=== PATIENT | female | born 1955 | race Caucasian/White ===

== ENCOUNTER 2017-12-28 06:24 | Inpatient (IN) ==
[~2017-12-28 06:24] MED LIST: MORPHINE SULFATE 15 MG TABLET.SA PO PRN; ROPIVACAINE HCL/PF 100 MG, EPINEPHrine 0.2 MG, KETOROLAC TROMETHAMINE 30 MG in NORMAL S... IJ PRN; TRANEXAMIC ACID 1,000 MG in NORMAL SALINE 100 ML IV PRN; ceFAZolin SODIUM 1 GM VIAL IV PRN
[2017-12-28] MEDS: RINGER'S SOLUTION,LACTATED 1,000 ML IV PRN ×2 (07:10→09:55)
--- NOTE | 2017-12-28 07:26 | ANES ---
Anesthesia Pre Procedure Eval Vitals/Labs: Last Vital Signs Temp 36.6 C 12/28/17 06:32 Pulse 85 12/28/17 06:32 Resp 20 12/28/17 06:32 BP 142/77 12/28/17 06:32 Pulse Ox 95 12/28/17 06:32 HOME MEDICATIONS ibuprofen 200 mg tablet 400 mg PO TID tab 09/24/17 [Last Taken Unknown] lisinopril 10 mg tablet 10 mg PO DAILY #30 tab 12/15/17 [Last Taken Unknown] Allergies/Adverse Reactions: Allergies Allergy/AdvReac Type Severity Reaction Status Date / Time No Known Allergies Allergy Verified 12/28/17 06:33 - Planned Procedure Planned Procedure: Right Total Knee Arthroplasty Medication List Reviewed:: Yes Allergies Verified: Yes Medical History (Last Reviewed 12/28/17 @ 07:04 by Jadon Stiles CRNA) Heart murmur (Chronic) Knee pain, chronic (Chronic) Hypertension (Chronic) H/O tooth extraction Osteoarthritis, knee Onset Date: 2011 left Surgical History (Last Reviewed 12/28/17 @ 07:05 by Jadon Stiles CRNA) History of section Onset Date: Unknown Hx of total knee arthroplasty Onset Date: 2011 left Family History (Last Reviewed 12/28/17 @ 07:05 by Jadon Stiles CRNA) Mother Cancer liver cancer Father Cancer liver - Family Anesthesia History Family History:: no untoward family reactions to anesthesia, no familial bleeding tendencies, no family history of clotting disorders, no family history of premature - Airway/Neck/Teeth Teeth Condition: None Mallampatti Score: 2 Thyromental (T-M) distance: > 6 cm Mandibulo Hyoid distance: > 3 cm - Respiratory Respiratory: chest non-tender, decreased breath sounds Smoking Status: Current every day smoker Discussed smoking cessation including day of surgery: Yes - smoked this am Sleep Apnea currently treated: No Sleep Apnea by current assessment: No - been told she snores loudly Discussed Risks/Treatment of RENE: Yes - Cardiovascular Patient History - Cardiac/Respiratory: Hypertension, Myocardial Infarction - Not by history but possible septal on EKG Tolerates Activity: Fair Heart Sounds: S1 & S2, Regular - Anesthesia Assessment and Plan ASA Class: PS, III Anesthesia Type Plan: Block - Adductor canal for post op pain relief, Spinal
[2017-12-28] MEDS ORDERED: ACETAMINOPHEN 500 MG TABLET PO PRN (09:47)
[2017-12-28] MEDS ORDERED: MAG HYDROX/ALUMINUM HYD/SIMETH 30 ML UDC PO PRN (09:47)
[2017-12-28] MEDS ORDERED: MORPHINE SULFATE 2 MG/ML DISP.SYRIN IV PRN (09:47)
[2017-12-28] MEDS ORDERED: DEXTROSE 5%-LACTATED RINGERS 1,000 ML IV PRN (09:47)
[2017-12-28] MEDS ORDERED: ZOLPIDEM TARTRATE 5 MG TABLET PO PRN (09:47)
[2017-12-28] MEDS ORDERED: MAGNESIUM HYDROXIDE 30 ML UDC PO PRN (09:47)
[2017-12-28] MEDS ORDERED: diphenhydrAMINE HCL 50 MG/ML VIAL IV PRN (09:47)
--- NOTE | 2017-12-28 09:47 | OR ---
Operative Report - Dictated Report Narrative: Date: 12/28/2017 Preoperative diagnosis: Right Knee degenerative joint disease. Postoperative diagnosis: Right Knee degenerative joint disease. Procedure: Right Total knee arthroplasty. Surgeon: Saurabh Davis M.D. Assembly Riveter: Porfirio Francisco PA-C Anesthesia: Spinal with regional block and local periarticular joint injection. Complications: None Specimens: Bone for disposal. Estimated blood loss: Minimal. Tourniquet time: 85 Minutes at 350 millimeters of mercury. Retained implants: Depuy Attune size 5 right lugged cemented posterior stabilized femoral component. Size 5 fixed-bearing cemented tibial platform. 5 by 7 millimeter posterior stabilized cross-linked tibial insert. 35 millimeter medialized patella button. Indications: Mrs. Alston is a 62-year-old female who has had long-standing right knee pain and arthrosis. This patient was followed in my clinic for period of time with significant complaints of right knee pain consistent with arthritic changes. She had failed conservative measures including, but not limited to, activity modification, passage of time, medications, and other conservative measures. Patient wished to proceed with surgical treatment. The risks, benefits, and alternatives were discussed in clinic. The risks of , blood clots, bleeding, infection, nerve/tendon blood vessel/ injury, malposition of components, intraoperative fracture, postoperative limited range of motion, persistent pain, failure of components, and need for additional procedures. Patient wished to proceed consent was obtained after answering all questions. Procedure: After marking the correct extremity on the floor, the patient was taken to the operating room. A timeout was performed. IV antibiotics consisting of Ancef were administered prior to the procedure. A regional followed by spinal anesthetic was induced by anesthesia, per my request, on the operative table with all bony prominences well-padded. Slater catheter was placed, and a bump was placed under the operative side buttock. SCDs and NAOMY hose were utilized on the nonoperative leg. A well-padded tourniquet was applied to the operative thigh. The operative leg was then pre-scrubbed with alcohol prepped, and draped in a standard sterile fashion. After exsanguinating the extremity with an Esmarch bandage, the tourniquet was inflated. After marking out the anterior knee for standard incision centered over the patella, the skin was incised and dissected down to the joint retinaculum. The joint retinaculum was marked out as well as the horizontal axis of the patella, and a standard medial parapatellar arthrotomy was then made. The most proximal aspect of the quadriceps tendon and the patella tendon insertion were protected from release. A partial synovectomy was performed as well as a resection of the infrapatellar fat pad. The distal femoral fat pad proximal to the trochlea was also resected using cautery. The soft tissues were elevated off the medial aspect of the proximal tibia using a Tian elevator ensuring that we did not transect the medial collateral ligament. Upon initial evaluation range of motion was approximately 10 degrees to 130 degrees of flexion. There were signs of advanced arthrosis in the medial and patellofemoral greater than lateral joint spaces. There were large marginal osteophytes which were removed with a rongeur. The knee was hyperflexed and the patella was tucked laterally. Protecting the surrounding soft tissues with Homans, an entry drill was placed down the femoral canal using Whitesides line for guidance into the entry point. The intramedullary femoral alignment bc was utilized in order to cut the distal femur in 5 degrees of valgus resecting 11 millimeters of bone. Next the distal femur was sized to a size 5. A posterior referencing guide was utilized to place the distal femoral cutting block in 3 degrees of external rotation. This was pinned into place. The rotation was confirmed both visually and based on anatomic landmarks. The 4 in 1 cutting jig of the appropriate size was utilized in order to make all bony cuts. The angle wing was used to ensure no notching. Retractors were utilized in order to protect surrounding soft tissues. This cut did not result in any excessive notching. We then cut the box centered over the distal femur. This allowed for resection of the anterior and posterior cruciate ligaments. I then turned my attention to the preparation of the tibia. Using an extra medullary tibial alignment bc, 2 millimeters of bone was resected off the medial articular surface. This was made perpendicular to the mechanical axis of the joint with the alignment bc centered over the ankle mortise. The alignment bc was checked and was noted to be parallel to the mechanical axis, centered over the medial one third of the tibial tubercle, paralleling the anterior surface of the tibia. We then turned our attention to the remaining meniscus and soft tissues. These were removed while protecting the surrounding ligaments and soft tissues. The marginal osteophytes off the anterior, posterior, medial, lateral aspects of the femur and tibia were removed. The tibia was sized out to a size 5. Next the tibia was drilled and punched in an externally rotated position. Next the trial femur and a series of tibial inserts were utilized in order to allow for full extension and maximal flexion. It was found that a 7 millimeter insert gave the best range of motion and stability at multiple flexion points as well as at full extension there was less than 2 mm of gapping both medially and laterally. There is minimal anterior translation with the knee at 90 degrees of flexion and no signs of being able to dislocate the knee. The patella was then prepared. The initial thickness was 21 millimeters. This was reamed down to 12 millimeters parallel to the anterior surface of the patella. It was sized out to a size 35 medialized patella button. This was then drilled and trialed. Without any medial restraint the patella tracked appropriately and did not sublux or dislocate. At this point, it was felt these were the appropriate sized implants, and all trials were removed. The standard periarticular joint injection consisting of ropivacaine, Toradol, and epinephrine were injected into the periarticular joint tissues. The bony surfaces were thoroughly irrigated with a pulsatile-suction saline irrigation device. A bone plug from the prior resected anterior chamfer cut was placed into the drill hole at the distal femur. The bony surfaces were then dried in preparation for placement of the implants. The cement was vacuum mixed per the furniture repairer's instructions. The cement was placed on the dry bony surfaces and posterior aspect of the implants. The implants were impacted into place, removing all extruded cement. At this point anesthesia administered tranexamic acid per protocol intravenously. The knee was placed in extension with axial loading with the trial insert while the cement cured. Once the cement cured, all remaining extruded cement was removed. The knee was placed through a range of motion with the trial insert to ensure appropriate range of motion and stability. Final range of motion was approximately 0 to 130 degrees. The knee was again thoroughly irrigated with pulsatile saline lavage. The final polyethylene insert was then impacted into place ensuring no retained soft tissues. The remaining periarticular joint injection was injected. A medium Hemovac drain was placed exiting superior laterally. The knee was then placed over a triangle and the arthrotomy was closed with interrupted #1 Vicryl after thoroughly irrigating the joint. The deep and subcutaneous tissues were closed with interrupted 0 and 3-0 Vicryl respectively. Skin was closed with a running subcutaneous 3-0 Monocryl and Prineo Dermabond dressing. 4 x 4's, Sof-Rol, and a full leg Guru wrap were applied. All sponge, needle, blade, and instrument counts were correct prior to closing the wounds. Postoperative condition: The patient was awoken and transferred to the postanesthesia care unit in stable condition. Plan is to be admitted to the inpatient medical/surgical floor postoperatively for 24 hours of IV antibiotics, physical therapy, occupational therapy, and medical comanagement. Patient will be weightbearing as tolerated with range of motion as tolerated. DVT prophylaxis will be with SCDs, NAOMY hose, and pharmacological anticoagulation. Anticipated hospital stay is approximately 1-3 days.
--- NOTE | 2017-12-28 10:10 | ANES ---
Anesthesia Procedure Note Procedure Note: ANESTHESIA PROCEDURE NOTE Date of Procedure: 12/28/2017 Time of procedure: 7:50 AM. Performed by: LEYLA Brewster CRNA, MSN Refrigerator Assembler: Sherry Cole RN. Preprocedure diagnosis: Post right knee arthroplasty. Post procedure diagnosis: Same. Procedure: Right Adductor Canal Block. Indications: Post great toe arthroplasty pain relief. Findings: See below. Details of the procedure: The patient was brought to OR #4 and placed in supine position. The patient's right femoral area to the knee was prepped with chlorhexidine and using ultrasound guidance the great femoral artery and nerve was identified and then followed to the level of the adductor canal. Lidocaine 1% was infiltrated to the skin of the intended injection site. Under ultrasound guidance the saphenous nerve was approached with visualization of a 4 inch shielded block needle. Once saphenous nerve was identified with proximity to the needle tip, the saphenous nerve was surrounded with 20 mL bupivacaine 0.25% with 1-200,000 epinephrine. Please see radiology/ultrasound report for details and retained images of the procedure. EBL: 0 Fluids: N/A. Specimen: N/A. Post procedure condition: The patient tolerated the procedure well. No complications were noted. Thank you for this consultation. Jadon Stiles CRNA, MSN
--- NOTE | 2017-12-28 10:10 | ANES ---
Post Anesthesia Discharge - Transfer of Care Transfer of Care handoff given to nurse: Yes - Discharge from PACU Discharge from PACU when meets criteria: Yes - Alert in PACU.
--- NOTE | 2017-12-28 10:44 | ANES ---
Post Anesthesia Assessment - Vital Signs Vitals: Last Vital Signs Temp 36.5 C 12/28/17 10:20 Pulse 79 12/28/17 10:20 Resp 26 H 12/28/17 10:20 BP 102/48 12/28/17 10:20 Pulse Ox 95 12/28/17 10:20 Airway Patency: Normal - Mental Status Level Of Consciousness: Awake, Alert, Appropriate - Pain Level Pain Score: 0 - N/V Assessment Nausea/Vomiting Presence: None Dehydration:: No
[2017-12-28] MEDS: ceFAZolin SODIUM 1 GM in DEXTROSE 5 % IN WATER 100 ML IV SCH ×6 (10:46→23:08)
[2017-12-28] MEDS: KETOROLAC TROMETHAMINE 15 MG/ML VIAL IV SCH ×3 (10:47→23:07)
[2017-12-28] MEDS ORDERED: amLODIPine BESYLATE 5 MG TABLET PO ONE (19:07)
[2017-12-28] MEDS ORDERED: amLODIPine BESYLATE 5 MG TABLET ONE (20:09)
[2017-12-28] MEDS: MORPHINE SULFATE 15 MG TABLET.SA PO SCH (20:14)
[2017-12-28] MEDS ORDERED: SENNOSIDES/DOCUSATE SODIUM 1 TAB TABLET PO SCH (21:00)
[2017-12-29] MEDS: oxyCODONE HCL/ACETAMINOPHEN 1 TAB TABLET PO PRN ×2 (02:26→09:44)
[2017-12-29] MEDS: KETOROLAC TROMETHAMINE 15 MG/ML VIAL IV SCH ×3 (04:47→16:34)
[2017-12-29 05:24] LABS: Hematocrit 39.4 % (37.0-47.0); Hemoglobin 13.1 gm/dL (12.5-16.0); Mean Cell Volume 87.2 fl (78-100); Mean Corpuscular Hgb Conc 33.2 g/dl (32-36); Mean Platelet Volume 9.5 fl (8-12.5); Platelet Count 220 K/mm3 (150-450); Red Blood Count 4.52 M/mm3 (4.2-5.4); Red Cell Distribution Width 13.2 % (11.5-14.0); White Blood Count 11.7 K/mm3 (4.0-10.5)
[2017-12-29 05:32] LABS: Anion Gap 11.2 mmol/L (6.8-13.8); BUN/Creatinine Ratio 16.4 (9.0-21.6); Calcium * 8.4 mg/dL (7.9-10.9); Carbon Dioxide 27.2 mmol/L (24-32.6); Potassium 4.4 mmol/L (3.4-4.6)
[2017-12-29] MEDS: ONDANSETRON HCL/PF 2 MG/ML VIAL IV PRN ×2 (08:00→16:33)
--- NOTE | 2017-12-29 08:03 | PN ---
Subjective - Date and Time Seen Date: 12/29/17 Time: 08:01 Subjective Narrative: Subjective: Reports nausea this morning. Was able to get to a chair with therapy. Pain is well-controlled. Voiding without any complications. Tolerating by mouth intake. Denies vomiting. Denies calf pain. Slept ok. Physical exam: Alert and oriented to person, place and time Right lower Extremity: Palpable dorsalis pedis pulse. Sensation grossly intact to light touch. Dressings clean and dry. Able to flex and extend ankle and toes. No excessive drainage. Calf and thigh are soft and nontender. Assessment: Postop day 1 status post right total knee arthroplasty. Plan: Due to the need for pain control, post-operative limited mobility, protection of the surgical site and joint, monitoring of the wound, and the management of chronic medical conditions, she requires continued inpatient care. She has not been able to meet her therapy goals in order to safely be discharged to home. Continue with physical and occupational therapy weightbearing as tolerated. Continue with anticoagulation. 24 hours postoperative prophylactic antibiotics. Pain control with goal to rely on oral medications. Continue bowel regimen. Will need 6 weeks with walker or assitive device to protect joint while ambulating during the recovery process. Discharge planning. Discontinue drain and Slater catheter. Objective - Vitals Vitals: Last Vital Signs Temp 37.2 C 12/29/17 06:20 Pulse 93 12/29/17 06:20 Resp 18 12/29/17 06:20 BP 121/60 12/29/17 06:20 Pulse Ox 93 12/29/17 06:20 - Abnormal Lab Findings Abnormal Lab Findings: Abnormal Lab Results 12/29/17 Range/Units 05:17 WBC 11.7 H (4.0-10.5) K/mm3 Cauti Physician Documentation - Urinary Catheter Management Urethral (Slater) Date of Insertion: 12/28/17 Time of Insertion: 08:20 Assessment/Plan - Problems/Diagnosis (1) S/P total knee arthroplasty Problem: Acute Qualifiers: Laterality: right Qualified Code(s): Z96.651 - Presence of right artificial knee joint (2) Acute blood loss anemia Problem: Acute (3) Nausea Problem: Acute (4) Heart murmur Problem: Chronic (5) Hypertension Problem: Chronic Qualifiers:
[2017-12-29] MEDS ORDERED: ENOXAPARIN SODIUM 40 MG/0.4 ML SYRG SC SCH (08:47)
[2017-12-29] MEDS: MORPHINE SULFATE 15 MG TABLET.SA PO SCH (10:38)
--- NOTE | 2017-12-29 14:54 | DS ---
(1) S/P total knee arthroplasty Problem: Acute Qualifiers: Laterality: right Qualified Code(s): Z96.651 - Presence of right artificial knee joint (2) Hypertension Problem: Chronic Qualifiers: Description of Stay: Mrs. Alston was admitted to the floor after undergoing right total knee arthroplasty. Tolerated this well. Was admitted to the floor postoperatively for 24 hours of IV antibiotics, pain control, medical comanagement, and occupational and physical therapy. OT and PT were consulted to assist with activities of daily living and ambulation. Was made weightbearing as tolerated with range of motion as tolerated. Pain was initially controlled with IV regimen. This was transitioned to oral once tolerating a by mouth intake. Was resumed on home diet and medications. Had a Slater catheter inserted and the operating room which was discontinued on postoperative day 1. A drain was placed intraoperatively into the knee which was discontinued on postoperative day 1. Lovenox SCD and NAOMY hose were utilized for DVT prophylaxis. Vital signs remained stable to the hospital course. Serial labs were obtained which showed a final hemoglobin of 13.1 grams. BMP was reviewed and was stable. Physical examination throughout the hospital course showed an extremity that had sensation that was intact to light touch, palpable pulses, a benign wound, motor intact to the toes, ankle, and knee. Knee range of motion was approximately 5 degrees to 70 degrees. Once an oral pain regimen was tolerated and physical therapy goals were met, it was felt that they were stable for discharge to home. Instructions: Continue with weightbearing as tolerated and range of motion as tolerated. It is OK to shower on the wound if it is not draining. If you note any drainage or for comfort you can cover with dry gauze and tape. Change every 2-3 days as needed. Continue with physical therapy. Resume home diet. Report any fever over 101.5 Fahrenheit, uncontrolled pain, increased drainage, foul odor of drain age, new or increased calf pain or shortness of breath, or any other significant complaints. A 325mg dialy aspirin will be started after finishing anticoagulation if not allergic. Continue with NAOMY hose on the operative extremity until instructed otherwise. No driving until instructed otherwise. Follow up in approximately 10-14 days. Procedures Performed: see notes below List Procedures: Right total knee arthroplasty Results and Findings: Lab Pending Results 12/29/17 05:17: WBC 11.7 H, RBC 4.52, Hgb 13.1, Hct 39.4, MCV 87.2, MCH 29.0, MCHC 33.2, RDW 13.2, Plt Count 220, MPV 9.5 12/29/17 05:17: Sodium 137, Plasma Sodium 137, Potassium 4.4, Chloride 103, Carb on Dioxide 27.2, Anion Gap 11.2, BUN 10, Creatinine 0.61, Est GFR (Non-Af Amer) 105, BUN/Creatinine Ratio 16.4, Random Glucose 106, Calcium 8.4 Discharge Location: Home Disposition: Home self-care Condition: Good Discharge Activity: Activity as tolerated, Weight bearing - with walker Discharge Diet: Low salt Referrals: Arley Purcell MD [Primary Care Provider] - Additional Patient Instructions (free text): Follow up with Orthopedic Dr. Davis 01/19 at 9:45am. Prescriptions (Any new or edited meds): Enoxaparin Sodium [Lovenox] 40 mg SC Q24H #7 disp.syrin Morphine Sulfate [Ms Contin] 15 mg PO Q12H #20 tablet.sa oxyCODONE HCL/ACETAMINOPHEN [Percocet 5 MG/325 MG] 2 tab PO Q4H PRN #90 tablet PRN Reason: Moderate Pain (Pain Scale 4-6) Promethazine HCl [Phenergan (Promethazine)] 25 mg PO Q4H PRN #30 tab PRN Reason: nausea/vomiting Sennosides/Docusate Sodium [Senokot-S] 2 tab PO HS #30 tablet Complete Home Medications List: Complete Home Medication List: lisinopril 10 mg tablet 10 mg PO DAILY #30 tab 12/15/17 Enoxaparin Sodium [Lovenox] 40 mg SC Q24H #7 disp.syrin 12/29/17 Morphine Sulfate [Ms Contin] 15 mg PO Q12H #20 tablet.sa 12/29/17 Promethazine HCl [Phenergan (Promethazine)] 25 mg PO Q4H PRN #30 tab 12/29/17 Sennosides/Docusate Sodium [Senokot-S] 2 tab PO HS #30 tablet 12/29/17 oxyCODONE HCL/ACETAMINOPHEN [Percocet 5 MG/325 MG] 2 tab PO Q4H PRN #90 tablet 12/29/17 Amb Orders for Discharge: PT Evaluation and Treatment* Facility: [facility], Location: Rehabilitation Services
[2017-12-29 16:10] VITALS: BP 143/70
== END 2017-12-29 17:25 | disposition home or self-care (01) | DRG 470 ==
LOC: MS 06:24 → EDSTATUS 08:00
PROVIDERS: ADMIT Orthopaedic Surgery; ATTEND Orthopaedic Surgery
CPT/HCPCS: 36415; 73560; 80048; 85027; 90686; 97110; 97116; 97161; 97165; 97535; J2405